=== PATIENT | female | born 1945 | race Caucasian/White ===

== ENCOUNTER → 2019-04-20 | Day surgery (SDC) | payer BC ==
[~2019-04-20] MED LIST: AMLODIPINE BESY10 MG PO; ATORVASTATIN CA10 MG PO; EPINEPHRINE HCL 1:1000 1ML 1 MG/ML AMP ONE; FENTANYL CITRATE/PF 100MCG/2 ML INJ ONE; LOSARTAN-HCTZ1 EACH PO; LOVAZA1 GM PO; MIDAZOLAM HCL 2 MG/2 ML VIAL ONE; OR PHACO EYE KIT ONE; PREOP PHACO EYE KIT ONE
--- OUTSIDE RECORDS SUMMARY | 2019-04-20 07:59 | XMS REPORT | Summary of Care ---
Author Author Bri Kelley R.N. Organization Unknown Address [facility] Phone Unavailable Care Team Providers Care Certified Cytotechnologist Name Role Phone SMITHA COVINGTON M.D. Unavailable Unavailable Bri Kelley R.N. Unavailable Unavailable Unavailable Unavailable Functional Status Name Dates Details Functional status health issues are not documented Status: Name Dates Details Cognitive status health issues are not documented Status: Problems Name Dates Details HTN (hypertension) (401.9, I10) Status: Active Dizziness (780.4, R42) Status: Active Seborrheic dermatitis (690.10, L21.9) Status: Active Onychomycosis (110.1, B35.1) Status: Active Tinea pedis of both feet (110.4, B35.3) Status: Active Hyperlipidemia (272.4, E78.5) Status: Active Medications Name Dates Details Lovaza 1 GM Oral Capsule TAKE 4 CAPSULE DAILY Quantity: 360 SMITHA COVINGTON M.D. Active Aspirin 81 MG Oral Tablet Delayed Release TAKE 1 TABLET DAILY * Quantity: 90 Refills: 3 SMITHA COVINGTON M.D. * Start : 03-Jul-2016 Active amLODIPine Besylate 10 MG Oral Tablet TAKE 1 TABLET DAILY. * Quantity: 90 Refills: 3 SMITHA COVINGTON M.D. * Start : 04-Oct-2016 Active Ocuvite Adult 50+ Oral Capsule TAKE 1 CAPSULE DAILY * Refills: 0 Active Restasis 0.05 % Ophthalmic Emulsion as needed * Refills: 0 Active Refresh Dry Eye Therapy SOLN as needed * Refills: 0 Active Atorvastatin Calcium 10 MG Oral Tablet TAKE 0.5 TABLET DAILY * Quantity: 90 Refills: 1 SMITHA COVINGTON M.D. * Start : 25-Jul-2018 Active Losartan Potassium-HCTZ 50-12.5 MG Oral Tablet TAKE 1 TABLET BY MOUTH DAILY * Quantity: 30 Refills: 5 SMITHA COVINGTON M.D. * Start : 28-Aug-2018 Active Allergies and Adverse Reactions Name Dates Details hydrocodone (Allergy) Status: Active Procedures Procedure Dates Details Procedures not documented Immunization Name Dates Details Immunizations not documented Social History Name Dates Details - Status: Name Dates Details Never smoker Never smoker Vital Signs Date Test Result Details No Known Vitals to report Results Date Description Value Details Results not documented Plan of Care Name Dates Details Planned Observations Planned Goals not documented Planned Encounters Appointment; SMITHA COVINGTON M.D. On: 02-Apr-2019 14:00 Interventions Provided Medication Changes* Losartan Potassium-HCTZ 50-12.5 MG Oral Tablet - Renew Instructions Name Dates Details Instructions not documented Encounters Appointment; KIET MORRIS M.D. Encounter Diagnosis: Problem not documented On: 19-Mar-2017 13:20 Appointment; SMITHA COVINGTON M.D. Encounter Diagnosis: Problem not documented On: 21-Mar-2017 14:00 Appointment; SMITHA COVINGTON M.D. Encounter Diagnosis: Problem not documented On: 02-Oct-2017 10:00 Appointment; SMITHA COVINGTON M.D. Encounter Diagnosis: Problem not documented On: 03-Oct-2017 13:20 Appointment; SMITHA COVINGTON M.D. Encounter Diagnosis: Problem not documented On: 03-Apr-2018 14:00
[2019-04-20 11:35] VITALS: BP 136/83
== END | disposition home or self-care (01) ==
LOC: OR 07:56
PROVIDERS: ATTEND Ophthalmology
DX: H25.11 Age-related nuclear cataract, right eye (principal); I10 Essential (primary) hypertension; E78.5 Hyperlipidemia, unspecified; R73.03 Prediabetes; Z88.6 Allergy status to analgesic agent; Z87.01 Personal history of pneumonia (recurrent)
CPT/HCPCS: 66984; J2250; J3010; V2632; J0171

== ENCOUNTER → 2019-05-04 | Day surgery (SDC) | payer BC ==
[~2019-05-04] MED LIST changes: -EPINEPHRINE HCL 1:1000 1ML 1 MG/ML AMP ONE
[2019-05-04 13:25] VITALS: BP 119/80
== END | disposition home or self-care (01) ==
LOC: OR 09:57
PROVIDERS: ATTEND Ophthalmology
DX: H25.12 Age-related nuclear cataract, left eye (principal); I10 Essential (primary) hypertension; E78.5 Hyperlipidemia, unspecified; R73.03 Prediabetes; H91.90 Unspecified hearing loss, unspecified ear; Z88.6 Allergy status to analgesic agent
CPT/HCPCS: 66984; J2250; J3010; V2632